=== PATIENT | female | born 1965 | race Caucasian/White ===

== ENCOUNTER 2016-11-19 18:33 | Emergency (ER) | payer BC, OTHER ==
--- NOTE | 2016-11-19 19:07 | ED Physician Documentation ---
History of Present Illness - Stated complaint Stated Complaint: LEG/ABD PX - Chief complaint Chief Complaint: General - History obtained from History obtained from: Patient, Family - History of Present Illness Timing: Today Pain level max: 5 Pain level now: 5 Quality: aching, dull pain Improved by: nothing Worsened by: nothing - Additonal information Additional information: 50 yo F with redness to the LLE. states similar to past history of cellulitis. States noted the redness today. Took excedrin migraine without relief of her leg pain today. States had 1 episode of emesis and diarrhea yesterday. None today. Review of Systems Constitutional: reports: Chills. denies: Fever, Myalgias Nose: denies: Rhinorrhea / runny nose, Congestion Throat: denies: Sore throat Cardiac: denies: Chest pain / pressure Skin: denies: Rash Musculoskeletal: denies: Neck pain, Back pain Neurologic: denies: Focal weakness, Numbness, Headache PD PAST MEDICAL HISTORY - Past Medical History Past Medical History: Yes Cardiovascular: Hypertension Other Past Medical History: recurrent cellulitis, abdominal hernia - Present Medications Home Medications: Ambulatory Orders Medication Instructions Recorded Confirmed Cephalexin [Keflex] 500 mg PO Q6H #28 capsule 11/19/16 Oxycodone HCl/Acetaminophen 1 each PO Q6HR #10 tablet 11/19/16 [Percocet 5-325 mg Tablet] Sulfamethox/Trimeth 800/160 1 each PO BID #14 tablet 11/19/16 [Bactrim Ds 800/160] - Allergies Allergies/Adverse Reactions: Allergies Allergy/AdvReac Type Severity Reaction Status Date / Time cephalexin monohydrate * Allergy Unknown Verified 11/19/16 18:43 [From Keflex] latex Allergy Unknown Verified 11/19/16 19:21 - Living Situation Living Situation: reports: With family Living Arrangement: reports: At home - Social History Does the pt smoke?: No Does the pt drink ETOH?: Yes Does the pt have substance abuse?: No - Family History Family history: reports: Non contributory PD ED PE NORMAL - Vitals Vital signs reviewed: Yes - General General: Alert and oriented X 3, No acute distress - HEENT HEENT: Moist mucous membranes - Neck Neck: Supple, no meningeal sign - Cardiac Cardiac: RRR, Strong equal pulses - Respiratory Respiratory: No respiratory distress, Clear bilaterally - Abdomen Abdomen: Soft, Non tender, Non distended - Derm Derm: Warm and dry - Extremities Extremities: Other (LLE redness, swelling, pain, warmth. knee to ankle, edges marked. no crepitus.) - Neuro Neuro: Alert and oriented X 3 Results - Vitals Vitals: Vital Signs - 24 hr 11/19/16 11/19/16 18:38 19:44 Temperature 35.9 C L Heart Rate 104 H 96 Respiratory 14 14 Rate Blood Pressure 186/106 H 152/78 H O2 Saturation 100 98 Oxygen O2 Source Room air PD MEDICAL DECISION MAKING - ED course Complexity details: reviewed results, re-evaluated patient, considered differential, d/w patient, d/w family ED course: Patient is a 50-year-old female who presents to the emergency department with left lower extremity cellulitis. Given Rocephin and Bactrim here. Will place on Keflex and Bactrim for home. She states she does not have a Keflex allergy. Patient is well-appearing, nontoxic. Afebrile. Patient counseled regarding signs and symptoms for which I believe and urgent re-evaluation would be necessary. Patient with good understanding of and agreement to plan and is comfortable going home at this time This document was made in part using voice recognition software. While efforts are made to proofread this document, sound alike and grammatical errors may occur. No nec fasc. No DVT. Departure - Departure Disposition: 01 Home, Self Care Clinical Impression: Cellulitis Qualifiers: Site of cellulitis: extremity Site of cellulitis of extremity: lower extremity Laterality: left Qualified Code(s): L03.116 - Cellulitis of left lower limb Condition: Good Instructions: ED Infec Skin Cellulitis Follow-Up: your,doctor in 2 days for skin check [Other] Prescriptions: Oxycodone HCl/Acetaminophen [Percocet 5-325 mg Tablet] 1 each PO Q6HR #10 tablet Sulfamethox/Trimeth 800/160 [Bactrim Ds 800/160] 1 each PO BID #14 tablet Cephalexin [Keflex] 500 mg PO Q6H #28 capsule Comments: Take all antibiotics until gone. Return if you worsen. Do not drink alcohol or drive while on narcotic pain medicine. Note that many narcotic pain relievers also contain tylenol/acetaminophen. Please ensure that your total dose of acetaminophen from all sources does not exceed 3 grams (3000mg) per day. You may constipated on this medication, take a stool softener such as "Colace" twice a day while you are on it. Also recommend a ojox-zyz-nmtacuz laxative such as senna or MiraLAX any day that you do not have a bowel movement. If you received narcotic pain medication in the emergency department, do not drive or operate machinery for the next 24 hours. Your blood pressure was elevated today on check in to the emergency department. This does not mean that you have hypertension, it is a common phenomenon to check into the emergency department and have elevated blood pressure. I recommend that you see your primary care physician within the week to have it rechecked when you're feeling better. Discharge Date/Time: 11/19/16 19:55
[2016-11-19] MEDS ORDERED: oxyCOD/ACETAMIN 5 MG/325 MG TABLET PO STA (19:20)
[2016-11-19] MEDS ORDERED: cefTRIAXone 1 GM VIAL IM STA (19:20)
[2016-11-19] MEDS ORDERED: SULFAMETH/TRIMETH DS 800/160 MG TABLET PO STA (19:20)
[2016-11-19] MEDS ORDERED: SULFAMETH/TRIMETH DS 800/160 MG TABLET PO ONE (19:31)
[2016-11-19] MEDS ORDERED: oxyCOD/ACETAMIN 5 MG/325 MG TABLET PO ONE (19:31)
[2016-11-19] MEDS ORDERED: cefTRIAXone 1 GM VIAL ONE (19:32)
[2016-11-19] MEDS ORDERED: LIDOCAINE 1% 2 ML VIAL ONE (19:32)
[2016-11-19 19:47] VITALS: BP 152/78
== END 2016-11-19 19:55 | disposition home or self-care (01) ==
LOC: ED 18:33
DX: L03.116 Cellulitis of left lower limb (principal); I10 Essential (primary) hypertension
CPT/HCPCS: 96372; 99283; A9270

== ENCOUNTER 2017-07-21 11:10 | Outpatient (CLI) | payer MEDICAID ==
[2017-07-21 17:28] LABS: BASOPHILS % (AUTO) 0.4 %; EOSINOPHILS # (AUTO) 0.1 10^3/uL (0.0-0.7); EOSINOPHILS % (AUTO) 1.4 %; HGB - HEMOGLOBIN 13.3 g/dL (12.0-16.0); LYMPHOCYTES # (AUTO) 1.8 10^3/uL (1.5-3.5); LYMPHOCYTES % (AUTO) 22.4 %; MEAN CORPUSCULAR HEMOGLOBIN 30.2 pg (27.0-31.0); MEAN CORPUSCULAR HGB CONC 33.5 g/dL (32.0-36.0); MEAN CORPUSCULAR VOLUME 90.2 fL (81.0-99.0); MEAN PLATELET VOLUME 7.3 fL (7.9-10.8); MONOCYTES # (AUTO) 0.4 10^3/uL (0.0-1.0); MONOCYTES % (AUTO) 5.1 %; NEUTROPHILS # (AUTO) 5.7 10^3/uL (1.5-6.6); NEUTROPHILS % (AUTO) 70.7 %; PLT - PLATELET COUNT 390 10^3/uL (130-450); RED BLOOD COUNT 4.39 10^6/uL (4.20-5.40); RED CELL DISTRIBUTION WIDTH 13.6 % (12.0-15.0)
[2017-07-21 17:38] LABS: ALBUMIN 3.7 g/dL (3.2-5.5); ALBUMIN/GLOBULIN RATIO 1.1 (1.0-2.2); ALKALINE PHOSPHATASE 78 IU/L (42-121); ALT ALANINE AMINOTRANSFERASE 16 IU/L (10-60); AST ASPARTATE AMINOTRANSFERASE 17 IU/L (10-42); BILIRUBIN,TOTAL 0.6 mg/dL (0.2-1.0); BUN - BLOOD UREA NITROGEN 9 mg/dL (6-20); CALCIUM 8.7 mg/dL (8.5-10.3); CARBON DIOXIDE - CO2 28 mmol/L (21-32); CHLORIDE 104 mmol/L (101-111); CHOL/HDL RATIO 3.7 (<4.4); CHOLESTEROL 155 mg/dL; CREATININE 0.6 mg/dL (0.4-1.0); GFR - MDRD 106 (>89); GLUCOSE 107 mg/dL (70-100); HDL CHOLESTEROL 42 mg/dL; LDL CHOLESTEROL,CALCULATED 82 mg/dL; SODIUM 137 mmol/L (135-145); VLDL CHOLESTEROL 31 mg/dL
== END 2017-07-21 11:11 | disposition home or self-care (01) ==
LOC: LAB.F 11:10
PROVIDERS: ATTEND Physician Assistant Medical
DX: Z00.00 Encounter for general adult medical examination without abnormal findings (principal)
CPT/HCPCS: 36415; 80053; 80061; 82306; 83721; 84443; 85025

== ENCOUNTER 2017-07-21 23:38 | Emergency (ER) | payer MEDICAID ==
[2017-07-21] MEDS ORDERED: TETANUS/DIPHTHERIA/PERTUSSIS 0.5 ML SYRINGE IM ONE (23:50)
[2017-07-22] MEDS ORDERED: AMOX/CLAV 875 MG/125 MG TABLET PO STA (00:04)
[2017-07-22] MEDS ORDERED: IBUPROFEN 600 MG TABLET PO STA (00:05)
--- NOTE | 2017-07-22 00:20 | ED Physician Documentation ---
PD HPI ANIMAL BITE - Stated complaint Stated Complaint: CAT BITE - Chief complaint Chief Complaint: Laceration - History obtained from History obtained from: Patient, Family - History of Present Illness Location of injury(ies): RUE, Right hand Details of the event: Cat, Immunized, Provoked Timing - onset: Today Timing - details: Abrupt onset Worsened by: Moving, Palpating Contributing factors: No: Immunocompromised, Asplenic Similar symptoms before: Has not had sx before Recently seen: Not recently seen - Additional information Additional information: Patient is a 51 year old female with no significant past medical history who is presenting to the emergency department after being bit by her cat. patient states that she tried to give her cat a bath today and when she tried to put it in the water it scratched an bit her. Patient states that the cat is otherwise vaccinated and well appearing. 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 - Present Medications Home Medications: Ambulatory Orders Medication Instructions Recorded Confirmed Lisinopril 1 tab PO DAILY 07/21/17 07/21/17 Amox/Clav 875/125 [Augmentin] 1 each PO Q12H #14 tablet 07/22/17 - Allergies Allergies/Adverse Reactions: Allergies Allergy/AdvReac Type Severity Reaction Status Date / Time cephalexin monohydrate * Allergy Unknown Verified 07/21/17 23:45 [From Keflex] latex Allergy Unknown Verified 07/21/17 23:45 - Social History Does the pt smoke?: No Smoking Status: Never smoker Does the pt drink ETOH?: Yes Does the pt have substance abuse?: No - Immunizations Immunizations are current?: No PD ED PE NORMAL - Vitals Vital signs reviewed: Yes - General General: Alert and oriented X 3 - Cardiac Cardiac: RRR - Respiratory Respiratory: No respiratory distress - Abdomen Abdomen: Non distended - Neuro Neuro: Alert and oriented X 3 PD ED PE EXPANDED - HEENT HEENT: Head injury (superficial scratch on patient's left forehead) - Derm Derm: Abrasion (s), Other (puncture wound) - Extremities Extremities: Left forearm (superficial scratches of left arm), Right hand ( puncture wound to right hand) Results - Vitals Vitals: Vital Signs - 24 hr 07/21/17 07/22/17 23:41 00:26 Temperature 36.6 C Heart Rate 86 90 Respiratory 16 16 Rate Blood Pressure 186/99 H 119/108 H O2 Saturation 100 99 Oxygen O2 Source Room air Procedures - Laceration (location) right hand Length in cm: 0.5 Wound type: Into subcut fat Neurovascular status: Vascular intact Wound Preparation: Hibiclens Skin layer closure: Steri strips Other: Patient tolerated well, Tetanus booster given Complexity: Simple PD MEDICAL DECISION MAKING - ED course Complexity details: reviewed old records, reviewed results, re-evaluated patient , considered differential, d/w patient ED course: Patient was seen and examined at bedside. Patient's wounds were cleaned. one steri strip was placed over one of the puncture wounds. patient was treated with tdap and augmentin. patient required no further work up and was stable for discharge with outpatient follow up. Departure - Departure Disposition: 01 Home, Self Care Clinical Impression: Cat bite Condition: Good Instructions: ED Bite Animal General Follow-Up: Viki Villela PA-C [Primary Care Provider] - Within 1 week Prescriptions: Amox/Clav 875/125 [Augmentin] 1 each PO Q12H #14 tablet Comments: Your symptoms today are being caused by a cat bite. You were treated with your tetanus shot and started on antibiotics. You will be on the antibiotics for the next week. You should keep the wound clean and dry. You should monitor for signs of infection. If the steri strip falls off your hand wound in the next few days you can replace it. You can take motrin or tylenol as needed for pain. You may return to the emergency department at any time for new, worsening or uncontrollable symptoms. Discharge Date/Time: 07/22/17 00:28
[2017-07-22 00:28] VITALS: BP 119/108
== END 2017-07-22 00:28 | disposition home or self-care (01) ==
LOC: ED 23:38
DX: S61.411A Laceration without foreign body of right hand, initial encounter (principal); W55.01XA Bitten by cat, initial encounter; S00.81XA Abrasion of other part of head, initial encounter; S50.812A Abrasion of left forearm, initial encounter; W55.03XA Scratched by cat, initial encounter; I10 Essential (primary) hypertension; Z00.00 Encounter for general adult medical examination without abnormal findings; Z23 Encounter for immunization
CPT/HCPCS: 36415; 80053; 80061; 82306; 84443; 85025; 90471; 90715; 99283; A9270; 83721

== ENCOUNTER 2017-07-23 10:02 | Emergency (ER) | payer MEDICAID ==
[2017-07-23] MEDS ORDERED: AMPICILLIN/SULBACTAM 3 GM in SODIUM CHLORIDE 0.9% MINIBAG 100 ML IV STA (10:48)
--- NOTE | 2017-07-23 10:54 | ED Physician Documentation ---
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 She was seen in the emergency department here at that time and was prescribed Augmentin, and a tetanus booster was administered. She was seen this morning by her primary physician who called me stating he would be sending the patient to the emergency department for an x- ray and IV antibiotics because of worsening symptoms. The patient reports increased redness and swelling of her hand. She denies fever, numbness or weakness. She denies shortness of breath. She is right-hand dominant. Review of Systems Constitutional: denies: Fever, Chills Throat: denies: Sore throat Respiratory: denies: Dyspnea GI: denies: Nausea, Vomiting Skin: reports: Bite / sting (Right hand) Musculoskeletal: reports: Extremity swelling (Right hand.) Neurologic: reports: Headache (mild). 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 - Present Medications Home Medications: Ambulatory Orders Medication Instructions Recorded Confirmed Lisinopril 1 tab PO DAILY 07/21/17 07/21/17 Amox/Clav 875/125 [Augmentin] 1 each PO Q12H #14 tablet 07/22/17 - Allergies Allergies/Adverse Reactions: Allergies Allergy/AdvReac Type Severity Reaction Status Date / Time latex Allergy Rash Verified 07/23/17 10:24 - Social History Does the pt smoke?: No Smoking Status: Never smoker Does the pt drink ETOH?: Yes Does the pt have substance abuse?: No - Immunizations Immunizations are current?: No PD ED PE NORMAL - Vitals Vital signs reviewed: Yes (hypertensive) - General General: Alert and oriented X 3, Other (Overweight.) - HEENT HEENT: Atraumatic, Moist mucous membranes, Pharynx benign - Cardiac Cardiac: RRR, No murmur - Respiratory Respiratory: No respiratory distress - Derm Derm: No rash - Extremities Extremities: Other (There are 4 puncture sites noted on the dorsum of the right hand on the radial side. There is soft tissue swelling and erythema extending from the base of the fingers to just proximal of the wrist. She is able to fully extend the fingers and can flex partially, limited by the swelling, but not by tenderness discomfort. There is no lymphangitic streaking, and no axillary adenopathy. Distal neurovascular is intact.) - Neuro Neuro: Alert and oriented X 3, No motor deficit, No sensory deficit Results - Vitals Vitals: Vital Signs - 24 hr 07/23/17 07/23/17 10:20 13:02 Temperature 36.5 C 37.0 C Heart Rate 78 65 Respiratory 16 18 Rate Blood Pressure 185/99 H 147/100 H O2 Saturation 97 98 Oxygen O2 Source Room air - Labs Labs: Laboratory Tests 07/23/17 11:19 WBC 8.0 RBC 4.42 Hgb 13.7 Hct 39.1 MCV 88.5 MCH 30.9 MCHC 35.0 RDW 13.7 Plt Count 370 MPV 6.7 L Neut # 5.6 Lymph # 1.8 Mccone # 0.5 Eos # 0.1 Baso # 0.0 Absolute Nucleated RBC 0.00 Nucleated RBC % 0.0 - Rads (name of study) Right hand Radiology: Prelim report reviewed, EMP read contemporaneously, See rad report ( No osseous abnormality. Relatively diffuse hand swelling, most evident dorsally. No maria isabel soft tissue gas or radiopaque foreign body.) PD MEDICAL DECISION MAKING - ED course Complexity details: reviewed old records, reviewed results, re-evaluated patient , considered differential, d/w patient, d/w PMD ED course: The patient's presentation is significant for cellulitis of her right hand caused by a puncture wounds from cat bite. She has had 2 doses of Augmentin since it was prescribed the night before last. An x-ray of the hand reveals no subcutaneous emphysema. There is no lymphangitic streaking, and the patient has ability to flex and extend her fingers, indicating that she does not have tendosynovitis. Treatment in the emergency department included administration of Unasyn 3 g IV. I discussed with her the expected course of illness, continued antibiotic therapy and outpatient follow-up, as well as potentially worrisome signs or symptoms that should prompt reevaluation in the emergency department. I discussed my evaluation with her primary physician who will be seeing the patient in follow-up. Departure - Departure Disposition: 01 Home, Self Care Clinical Impression: Cellulitis Qualifiers: Site of cellulitis: extremity Site of cellulitis of extremity: upper extremity Laterality: right Qualified Code(s): L03.113 - Cellulitis of right upper limb Cat bite Qualifiers: Encounter type: subsequent encounter Qualified Code(s): W55.01XD - Bitten by cat, subsequent encounter Condition: Stable Instructions: ED Bite Cat, ED Infec Skin Cellulitis Follow-Up: Viki Villela PA-C [Primary Care Provider] - Comments: Keep your right hand elevated as much of the time as possible. Continue taking Augmentin as previously prescribed. He can use ibuprofen, up to 800 mg 3 times daily if needed for discomfort. Follow up with your primary physician within 1 week. Call to schedule appointment. Return to the emergency department if you develop increasing redness, swelling, pain, or otherwise worsening symptoms. Discharge Date/Time: 07/23/17 13:02
--- NOTE | 2017-07-23 11:15 | XRAY Preliminary Report ---
Exam: XR HAND 3 VIEW RT IMPRESSION: 1. No osseous abnormality. 2. Relatively diffuse hand swelling, most evident dorsally. No maria isabel soft tissue gas or radiopaque fo reign body. [facility] SITE ID: [id number]
--- NOTE | 2017-07-23 11:16 | XRAY Report ---
EXAM: RIGHT HAND RADIOGRAPHY EXAM DATE: 07/23/2017 11:05 AM. CLINICAL HISTORY: Cat bite right hand with infection. COMPARISON: None. TECHNIQUE: 3 views. FINDINGS: Bones: Normal. No fractures or bone lesions. Joints: Normal. No subluxations. Soft Tissues: Relatively diffuse soft tissue swelling, most evident throughout the dorsal aspect of t he hand and less so fingers. No definite soft tissue gas or radiopaque foreign bodies. IMPRESSION: 1. No osseous abnormality. 2. Relatively diffuse hand swelling, most evident dorsally. No maria isabel soft tissue gas or radiopaque fo reign body. [facility] Referring Provider Line: [phone] SITE ID: [id number]
[2017-07-23 11:24] LABS: BASOPHILS % (AUTO) 0.5 %; EOSINOPHILS # (AUTO) 0.1 10^3/uL (0.0-0.7); HGB - HEMOGLOBIN 13.7 g/dL (12.0-16.0); LYMPHOCYTES # (AUTO) 1.8 10^3/uL (1.5-3.5); LYMPHOCYTES % (AUTO) 22.6 %; MEAN CORPUSCULAR HEMOGLOBIN 30.9 pg (27.0-31.0); MEAN CORPUSCULAR VOLUME 88.5 fL (81.0-99.0); MEAN PLATELET VOLUME 6.7 fL (7.9-10.8); MONOCYTES # (AUTO) 0.5 10^3/uL (0.0-1.0); MONOCYTES % (AUTO) 6.1 %; NEUTROPHILS # (AUTO) 5.6 10^3/uL (1.5-6.6); NEUTROPHILS % (AUTO) 69.8 %; PLT - PLATELET COUNT 370 10^3/uL (130-450); RED BLOOD COUNT 4.42 10^6/uL (4.20-5.40); RED CELL DISTRIBUTION WIDTH 13.7 % (12.0-15.0)
[2017-07-23 13:03] VITALS: BP 147/100
== END 2017-07-23 13:02 | disposition home or self-care (01) ==
LOC: ED 10:02
DX: L03.113 Cellulitis of right upper limb (principal); S61.431A Puncture wound without foreign body of right hand, initial encounter; W55.01XA Bitten by cat, initial encounter; I10 Essential (primary) hypertension
CPT/HCPCS: 36415; 85025; 96365; 99283; 99284

== ENCOUNTER 2017-08-04 13:13 | Outpatient (CLI) | payer MEDICAID ==
--- NOTE | 2017-08-17 13:35 | Mammography Report ---
DIGITAL SCREENING MAMMOGRAM: 08/04/2017 CLINICAL INDICATION: 51-year-old with history of late childbearing for screening. COMPARISON: Films from his [place], [place] dated 12/30/2013. TECHNIQUE: Routine CC and MLO projections were obtained of the breasts. FINDINGS: Scattered fibroglandular tissue is present within the breasts. There are no dominant masses, suspicious microcalcifications, or secondary signs of malignancy. In comparison to the previous studies, there are no significant changes. IMPRESSION: NO MAMMOGRAPHIC EVIDENCE OF MALIGNANCY. NO SIGNIFICANT INTERVAL CHANGES. RECOMMENDATION: Screening mammography is recommended annually. BIRADS CATEGORY 1 - NEGATIVE. STANDARD QUALIFYING STATEMENTS: 1. This examination was reviewed with the aid of Computed-Aided Detection (CAD). 2. A negative or benign imaging report should not delay biopsy if clinically suspicious findings are present. Consider surgical consultation if warranted. More than 5% of cancers are not identified by imaging. 3. Dense breasts may obscure an underlying neoplasm. TD: 08/17/2017 13:34
== END 2017-08-04 13:14 | disposition home or self-care (01) ==
LOC: DI 13:13
PROVIDERS: ATTEND Physician Assistant Medical
DX: Z00.00 Encounter for general adult medical examination without abnormal findings (principal); Z12.31 Encounter for screening mammogram for malignant neoplasm of breast
CPT/HCPCS: 77067

== ENCOUNTER 2017-08-20 13:41 | Day surgery (SDC) | payer MEDICAID ==
[~2017-08-20 13:41] MED LIST: LACTATED RINGERS 1,000 ML IV ONE
[2017-08-20] MEDS ORDERED: MIDAZOLAM 2 MG/2 ML VIAL IVP ONE (16:12)
[2017-08-20] MEDS ORDERED: fentaNYL 250 MCG/5 ML VIAL IVP ONE (16:12)
[2017-08-20] MEDS ORDERED: PROPOFOL 200 MG/20 ML VIAL IVP ONE (16:40)
[2017-08-20] MEDS ORDERED: LIDOCAINE-MPF 2% 5 ML VIAL IM ONE (16:40)
[2017-08-20 17:52] VITALS: BP 135/77
== END 2017-08-20 13:42 | disposition home or self-care (01) ==
LOC: SDS 13:41
PROVIDERS: ATTEND Internal Medicine Gastroenterology
PROC: 0DBN8ZX Excision of Sigmoid Colon, Via Natural or Artificial Opening Endoscopic, Diagnostic (ICD-10-PCS; 2017-08-20)
PROC: 0DBN8ZX Excision of Sigmoid Colon, Via Natural or Artificial Opening Endoscopic, Diagnostic (ICD-10-PCS; principal; 2017-08-20 14:45)
DX: Z12.11 Encounter for screening for malignant neoplasm of colon (principal); K63.5 Polyp of colon; I10 Essential (primary) hypertension; E78.5 Hyperlipidemia, unspecified; Z80.0 Family history of malignant neoplasm of digestive organs
CPT/HCPCS: 45380; 45385; J3010; J7120; 88305

== ENCOUNTER 2017-09-30 12:56 | Outpatient (CLI) | payer MEDICAID ==
--- NOTE | 2017-10-01 08:18 | XRAY Report ---
Procedure Date: 09/30/2017 Accession Number: [id number] / [id number] Procedure: FL - Barium Enema w/Air CPT Code: FULL RESULT: EXAM: Barium Enema w/Air DATE: 09/30/2017 4:14 PM CLINICAL HISTORY: HX OF COLON POLYPS, ADENOMATOUS TECHNIQUE: Double contrast barium enema COMPARISON: None FINDINGS: Initial jammer hooker view of the abdomen demonstrates a normal bowel gas pattern. The colon is normal in caliber. There is no evidence of obstruction within the colon passes into and out of the anterior abdominal wall hernia. No definite polyp or constricting mass lesion is identified. The cecum distends normally. The appendix opacifies with contrast. IMPRESSION: No definite polyp or constricting mass lesion identified. No obstruction at the level of the anterior abdominal wall hernia. Fluoroscopy time: 2 minutes 3 seconds; 28 spot images obtained.
== END 2017-09-30 12:57 | disposition home or self-care (01) ==
LOC: DI 12:56
PROVIDERS: ATTEND Internal Medicine Gastroenterology
DX: Z86.010 Personal history of colon polyps (principal); K43.9 Ventral hernia without obstruction or gangrene
CPT/HCPCS: 74280

== ENCOUNTER 2018-01-27 12:22 | Emergency (ER) | payer SELFPAY ==
--- NOTE | 2018-01-27 14:28 | ED Physician Documentation ---
History of Present Illness - Stated complaint Stated Complaint: DIZZY/LEFT LEG PX - Chief complaint Chief Complaint: General - History obtained from History obtained from: Patient - History of Present Illness Timing: Other (52-year-old woman with history of recurrent cellulitis of the left leg which started up on Thursday and has had fevers at night and pain especially when she is up and around but not too bad at rest. She saw her physician today and got Rocephin injections and a prescription for doxycycline and Percocet. About 20 minutes after taking the Percocet she became vertiginous after turning her head rapidly and nearly passed out but did not. 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:  - Present Medications Home Medications: Ambulatory Orders Medication Instructions Recorded Confirmed Oxycodone HCl/Acetaminophen 1 tab 01/27/18 [Oxycodone-Acetaminophen 5-325] RX: Doxycycline Hyclate 1 tab 01/27/18 RX: Tramadol HCl 50 mg PO Q4H PRN #10 tablet 01/27/18 - Allergies Allergies/Adverse Reactions: Allergies Allergy/AdvReac Type Severity Reaction Status Date / Time latex Allergy Rash Verified 07/23/17 10:24 cephalexin [From Keflex] AdvReac Unknown Unknown Verified 08/20/17 13:38 - Social History Does the pt smoke?: No Smoking Status: Never smoker Does the pt drink ETOH?: Yes Does the pt have substance abuse?: No - Immunizations Immunizations are current?: No - POLST Patient has POLST: No PD ED PE NORMAL - Vitals Vital signs reviewed: Yes - General General: Alert and oriented X 3, No acute distress - HEENT HEENT: PERRL, EOMI - Neck Neck: Supple, no meningeal sign, No bony TTP - Cardiac Cardiac: RRR, No murmur - Respiratory Respiratory: No respiratory distress, Clear bilaterally - Abdomen Abdomen: Normal bowel sounds, Soft, Non tender - Back Back: No CVA TTP, No spinal TTP - Derm Derm: Normal color, Warm and dry - Extremities Extremities: Other (She has a significant cellulitis of basically the whole left leg from below the knee down to the ankle. 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 Given the extent of the cellulitis blood work was done to screen for severe illness and the blood work was reassuring. - Sepsis Event Vital Signs: Vital Signs - 24 hr 01/27/18 12:31 Temperature 36.6 C Heart Rate 68 Respiratory 18 Rate Blood Pressure 151/94 H O2 Saturation 95 Oxygen O2 Source Room air Departure - Departure Disposition: 01 Home, Self Care Clinical Impression: Cellulitis Condition: Good Record reviewed to determine appropriate education?: Yes Instructions: Cellulitis Dc Prescriptions: RX: Tramadol HCl 50 mg PO Q4H PRN #10 tablet PRN Reason: Pain Comments: SEE YOUR DOCTOR TOMORROW SCHEDULED Your blood pressure was elevated today on check into the emergency department. This does not mean that you have hypertension, it is a common phenomenon to come to the emergency department and have elevated blood pressure. I recommend that you see your primary care physician within the week to have it rechecked when you are feeling better. Discharge Date/Time: 01/27/18 15:20
[2018-01-27 14:44] LABS: BASOPHILS % (AUTO) 0.4 %; EOSINOPHILS % (AUTO) 0.4 %; HGB - HEMOGLOBIN 13.8 g/dL (12.0-16.0); LYMPHOCYTES # (AUTO) 1.3 10^3/uL (1.5-3.5); LYMPHOCYTES % (AUTO) 17.4 %; MEAN CORPUSCULAR HEMOGLOBIN 31.5 pg (27.0-31.0); MEAN CORPUSCULAR VOLUME 89.9 fL (81.0-99.0); MEAN PLATELET VOLUME 6.9 fL (7.9-10.8); MONOCYTES # (AUTO) 0.8 10^3/uL (0.0-1.0); MONOCYTES % (AUTO) 11.1 %; NEUTROPHILS # (AUTO) 5.2 10^3/uL (1.5-6.6); NEUTROPHILS % (AUTO) 70.7 %; PLT - PLATELET COUNT 339 10^3/uL (130-450); RED BLOOD COUNT 4.39 10^6/uL (4.20-5.40); RED CELL DISTRIBUTION WIDTH 13.9 % (12.0-15.0); WHITE BLOOD COUNT 7.4 x10^3/uL (4.8-10.8)
[2018-01-27 14:53] LABS: CALCIUM 9.2 mg/dL (8.5-10.3); CREATININE 0.8 mg/dL (0.4-1.0)
[2018-01-27 15:21] VITALS: BP 116/82
== END 2018-01-27 15:20 | disposition home or self-care (01) ==
LOC: ED 12:22
DX: L03.116 Cellulitis of left lower limb (principal); I10 Essential (primary) hypertension
CPT/HCPCS: 36415; 80048; 83605; 85025; 99283

== ENCOUNTER 2018-05-21 12:50 | Outpatient (CLI) | payer BC | END 2018-05-21 12:51 | disposition home or self-care (01) | LOC: LAB.F 12:50 | PROVIDERS: ATTEND Physician Assistant Medical | DX: Z01.84 Encounter for antibody response examination (principal) | CPT/HCPCS: 36415; 81599; 86765 ==

== ENCOUNTER 2018-08-25 09:48 | Emergency (ER) | payer BC ==
[2018-08-25 10:00] VITALS: BP 142/88
--- NOTE | 2018-08-25 10:58 | XRAY Report ---
Reason: pain with ROM. Procedure Date: 08/25/2018 Accession Number: [id number] / [id number] Procedure: XR - Shoulder 3 View RT CPT Code: FULL RESULT: EXAM: RIGHT SHOULDER RADIOGRAPHY EXAM DATE: 08/25/2018 10:46 AM. CLINICAL HISTORY: Pain with ROM. COMPARISON: None. TECHNIQUE: 3 views. FINDINGS: Bones: Normal. No fracture or bone lesion. Joints: The glenohumeral and acromioclavicular joints are normal. Soft tissues: Amorphous calcifications along the distal aspect of the rotator cuff. IMPRESSION: 1. No fracture or significant degenerative changes. 2. Amorphous calcifications along the distal aspect of the rotator cuff are nonspecific but can be seen in the setting of hydroxyapatite deposition disease. [facility]
--- NOTE | 2018-08-25 11:23 | ED Physician Documentation ---
PD HPI UPPER EXT INJURY - Stated complaint Stated Complaint: RT SHOULDER PAIN - Chief complaint Chief Complaint: Ext Problem - History obtained from History obtained from: Patient - History of Present Illness Location: Right, Shoulder Type of injury: Other Timing - onset: How many months ago (6) Timing - duration: Months (6) Timing - details: Gradual onset, Still present Improved by: Rest, Immobilization Worsened by: Moving, Palpating Associated symptoms: Swelling Contributing factors: No: Anticoagulated Similar symptoms before: No diagnosis Recently seen: Not recently seen - Additonal information Additional information: 52 y/o female with a history of right shoulder pain has developed worsening pain over the past 6 months. She goes to the pool to swim daily and she has had increased pain in the shoulder to the point that she is not able to swim secondary to pain and decreased ROM. 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 Derm:  - Present Medications Home Medications: Ambulatory Orders Medication Instructions Recorded Confirmed Diclofenac Epolamine [Flector] 1 each TD BID #20 adh..patch 08/25/18 traMADol [Ultram] 50 - 100 mg PO Q6H PRN #20 tablet 08/25/18 - Allergies Allergies/Adverse Reactions: Allergies Allergy/AdvReac Type Severity Reaction Status Date / Time latex Allergy Rash Verified 08/25/18 10:00 cephalexin [From Keflex] AdvReac Unknown Unknown Verified 08/25/18 10:00 - Social History Does the pt smoke?: No Smoking Status: Never smoker Does the pt drink ETOH?: Yes Does the pt have substance abuse?: No - Immunizations Immunizations are current?: No - POLST Patient has POLST: No PD ED PE NORMAL - Vitals Vital signs reviewed: Yes (hypertnesive ) - General General: Alert and oriented X 3, No acute distress, Well developed/nourished - HEENT HEENT: Atraumatic, PERRL, EOMI - Neck Neck: Supple, no meningeal sign, No bony TTP - Respiratory Respiratory: No respiratory distress - Derm Derm: Normal color, Warm and dry, No rash - Extremities Extremities: No deformity, Other (There is point tenderness and fullness to the anterior deltoid. There is restriction to ROM secondary to pain along the rotator cuff. Distal n/v is intact. 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 No fracture or significant degenerative changes. 2. Amorphous calcifications along the distal aspect of the right rotator cuff are nonspecific but can be seen in the setting of hydroxyapatite deposition disease.), EMP read indepedently, See rad report PD MEDICAL DECISION MAKING - ED course Complexity details: reviewed results, re-evaluated patient, considered differential, d/w patient ED course: 52 y/o female with progressive worsening of shoulder pain is found to have hydroxyapetite crystals in the shoulder and she is treated with PO decadron and referred to orthopedics for further workup and treatment. Departure - Departure Disposition: 01 Home, Self Care Clinical Impression: [place] shoulder syndrome, right Condition: Stable Instructions: ED Bursitis [facility] Viki Villela PA-C [Primary Care Provider] - Prescriptions: Diclofenac Epolamine [Flector] 1 each TD BID #20 adh..patch traMADol [Ultram] 50 - 100 mg PO Q6H PRN #20 tablet PRN Reason: Pain Discharge Date/Time: 08/25/18 12:16
[2018-08-25] MEDS ORDERED: CHERRY SYRUP 10 ML UDC PO ONE (11:51)
[2018-08-25] MEDS ORDERED: DEXAMETHASONE 10 MG/ML VIAL PO STA (11:51)
== END 2018-08-25 12:16 | disposition home or self-care (01) ==
LOC: ED 09:48
DX: M11.011 Hydroxyapatite deposition disease, right shoulder (principal); I10 Essential (primary) hypertension
CPT/HCPCS: 73030; 99281; 99283; A9270

== ENCOUNTER 2019-09-27 07:48 | Emergency (ER) | payer BC, OTHER ==
--- NOTE | 2019-09-27 08:28 | ED Physician Documentation ---
History of Present Illness - Stated complaint Stated Complaint: HERNIA/GROIN PX - Chief complaint Chief Complaint: General - History obtained from History obtained from: Patient - History of Present Illness Timing: Last night - Additonal information Additional information: 53-year-old female with a history of recurrent left lower extremity cellulitis had a rough night last night has developed some pain in her left groin where she usually has pain associated with the cellulitis believed to be secondary to lymph node enlargement. She has some mild erythema to the anterior calf just beginning. She states that she has had this happen to her 4 times previously and symptoms are similar. She has developed a fever and she has had abdominal pain throughout the night from a ventral hernia she was very uncomfortable with the hernia pain throughout the night vomited once and this morning this is improved. Her groin pain fever and redness remain. Review of Systems Constitutional: reports: Fever, Fatigue Eyes: denies: Decreased vision Ears: denies: Ear pain Nose: denies: Rhinorrhea / runny nose, Congestion Throat: denies: Sore throat Cardiac: denies: Chest pain / pressure, Palpitations Respiratory: denies: Dyspnea, Cough GI: reports: Abdominal Pain, Nausea, Vomiting : denies: Dysuria, Frequency Skin: denies: Rash Musculoskeletal: reports: Extremity pain. 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 Derm:  - Present Medications Home Medications: Ambulatory Orders Medication Instructions Recorded Confirmed Diclofenac Epolamine [Flector] 1 each TD BID #20 adh..patch 08/25/18 traMADol [Ultram] 50 - 100 mg PO Q6H PRN #20 tablet 08/25/18 Cefdinir 300 mg PO BID #20 capsule 09/27/19 - Allergies Allergies/Adverse Reactions: Allergies Allergy/AdvReac Type Severity Reaction Status Date / Time latex Allergy Rash Verified 09/27/19 08:03 cephalexin [From Keflex] AdvReac Unknown Unknown Verified 09/27/19 08:03 - Social History Does the pt smoke?: No Smoking Status: Never smoker Does the pt drink ETOH?: Yes Does the pt have substance abuse?: No - Immunizations Immunizations are current?: No - POLST Patient has POLST: No PD ED PE NORMAL - Vitals Vital signs reviewed: Yes (Tachycardic and hypertensive) - General General: Alert and oriented X 3, No acute distress, Well developed/nourished - HEENT HEENT: Atraumatic, PERRL, EOMI - Neck Neck: Supple, no meningeal sign, No bony TTP - Cardiac Cardiac: No murmur, Other (tachy to 110) - Respiratory Respiratory: No respiratory distress, Clear bilaterally - Abdomen Abdomen: Soft, Other (There is a ventral hernia that is reducible and non- tender. ) - Back Back: No CVA TTP, No spinal TTP - Derm Derm: Normal color, Warm and dry, No rash - Extremities Extremities: No deformity, No edema, Other (There is marked tenderness specifically to the left inguinal area. There is no palpable mass and this does not feel like a hernia. The area is repeatedly tender and bothers the patient. The anterior calf has only mild erythema from the ankle to just below the knee, and noticible only when comapred to the right side. distal n/v is intact. 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, No motor deficit, No sensory deficit, Normal speech Eye Opening: Spontaneous Motor: Obeys Commands Verbal: Oriented GCS Score: 15 - Psych Psych: Normal mood, Normal affect Results - Vitals Vitals: Vital Signs - 24 hr 09/27/19 09/27/19 09/27/19 08:04 08:07 08:45 Temperature 37.4 C 39.2 C H 38.2 C H Heart Rate 120 H 117 H 105 H Respiratory 20 20 16 Rate Blood Pressure 194/101 H 201/108 H 154/93 H O2 Saturation 97 94 98 09/27/19 09/27/19 09:18 10:10 Temperature 38.2 C H Heart Rate 103 H 107 H Respiratory 18 16 Rate Blood Pressure 152/80 H 131/72 H O2 Saturation 94 96 Oxygen O2 Source Room air - Labs Labs: Laboratory Tests 09/27/19 09/27/19 09/27/19 08:20 08:20 08:20 WBC 22.2 H RBC 4.47 Hgb 13.9 Hct 39.3 MCV 87.9 MCH 31.1 H MCHC 35.4 RDW 13.3 Plt Count 366 MPV 9.0 Neut # (Auto) 20.3 H Lymph # (Auto) 0.6 L [place] # (Auto) 1.0 Eos # (Auto) 0.0 Baso # (Auto) 0.1 Absolute Nucleated RBC 0.00 Nucleated RBC % 0.0 Manual Slide Review Indicated Platelet Estimate NORMAL (130-450,000) Platelet Morphology NORMAL APPEARANCE RBC Morph Micro Appear NORMAL APPEARANCE Sodium 133 L Potassium 3.6 Chloride 98 L Carbon Dioxide 23 Anion Gap 12.0 BUN 11 Creatinine 0.8 Estimated GFR (MDRD) 75 L Glucose 182 H Lactic Acid 1.8 Calcium 8.9 Total Bilirubin 0.9 AST 22 ALT 19 Alkaline Phosphatase 66 Total Protein 8.0 Albumin 4.2 Globulin 3.8 Albumin/Globulin Ratio 1.1 Lipase 27 Urine Color Urine Clarity Urine pH Ur Specific Colon Urine Protein Urine Glucose (UA) Urine Ketones Urine Occult Blood Urine Nitrite Urine Bilirubin Urine Urobilinogen Ur Leukocyte Esterase Ur Microscopic Review Urine Culture Comments 09/27/19 11:20 WBC RBC Hgb Hct MCV MCH MCHC RDW Plt Count MPV Neut # (Auto) Lymph # (Auto) [place] # (Auto) Eos # (Auto) Baso # (Auto) Absolute Nucleated RBC Nucleated RBC % Manual Slide Review Platelet Estimate Platelet Morphology RBC Morph Micro Appear Sodium Potassium Chloride Carbon Dioxide Anion Gap BUN Creatinine Estimated GFR (MDRD) Glucose Lactic Acid Calcium Total Bilirubin AST ALT Alkaline Phosphatase Total Protein Albumin Globulin Albumin/Globulin Ratio Lipase Urine Color DARK YELLOW Urine Clarity CLEAR Urine pH 7.0 Ur Specific Colon 1.010 Urine Protein NEGATIVE Urine Glucose (UA) NEGATIVE Urine Ketones NEGATIVE Urine Occult Blood NEGATIVE Urine Nitrite NEGATIVE Urine Bilirubin NEGATIVE Urine Urobilinogen 1 (NORMAL) Ur Leukocyte Esterase NEGATIVE Ur Microscopic Review NOT INDICATED Urine Culture Comments NOT INDICATED PD MEDICAL DECISION MAKING - ED course Complexity details: reviewed results, re-evaluated patient, considered differential, d/w patient ED course: 53-year-old female with recurrent cellulitis in the left leg is administered Rocephin 2 [address] IM we will [address] her on cefdinir. The last time she had this the keflex did not work and she was placed on cipro and this caused some posterior leg pain. Departure - Departure Disposition: 01 Home, Self Care Clinical Impression: Cellulitis Qualifiers: Site of cellulitis: extremity Site of cellulitis of extremity: lower extremity Laterality: left Qualified Code(s): L03.116 - Cellulitis of left lower limb Condition: Stable Instructions: ED Infec Skin Cellulitis Follow-Up: Lo Deras ARNP [Primary Care Provider] - Prescriptions: Cefdinir 300 mg PO BID #20 capsule
[2019-09-27] MEDS: ACETAMINOPHEN 325 MG TABLET PO STA (08:39)
[2019-09-27] MEDS: cefTRIAXone 2 GM in SODIUM CHLORIDE 0.9% MINIBAG 100 ML IV STA (08:40)
[2019-09-27 08:43] LABS: BASOPHILS # (AUTO) 0.1 10^3/uL (0.0-0.1); BASOPHILS % (AUTO) 0.3 %; EOSINOPHILS % (AUTO) 0.2 %; HGB - HEMOGLOBIN 13.9 g/dL (12.0-16.0); LYMPHOCYTES # (AUTO) 0.6 10^3/uL (1.5-3.5); LYMPHOCYTES % (AUTO) 2.6 %; MEAN CORPUSCULAR HEMOGLOBIN 31.1 pg (27.0-31.0); MEAN CORPUSCULAR HGB CONC 35.4 g/dL (32.0-36.0); MEAN CORPUSCULAR VOLUME 87.9 fL (81.0-99.0); MONOCYTES % (AUTO) 4.3 %; NEUTROPHILS # (AUTO) 20.3 10^3/uL (1.5-6.6); NEUTROPHILS % (AUTO) 91.5 %; PLT - PLATELET COUNT 366 10^3/uL (130-450); RED BLOOD COUNT 4.47 10^6/uL (4.20-5.40); RED CELL DISTRIBUTION WIDTH 13.3 % (12.0-15.0); WHITE BLOOD COUNT 22.2 x10^3/uL (4.8-10.8)
[2019-09-27 08:58] LABS: ALBUMIN 4.2 g/dL (3.2-5.5); ALBUMIN/GLOBULIN RATIO 1.1 (1.0-2.2); BILIRUBIN,TOTAL 0.9 mg/dL (0.2-1.0); CALCIUM 8.9 mg/dL (8.5-10.3); CREATININE 0.8 mg/dL (0.4-1.0)
[2019-09-27 09:01] LABS: PLATELET ESTIMATE, MANUAL NORMAL (130-450,000) (NORMAL); PLATELET MORPHOLOGY NORMAL APPEARANCE (NORMAL); RBC MORPHOLOGY (MULTIPLE) NORMAL APPEARANCE (NORMAL)
[2019-09-27 11:36] LABS: BILIRUBIN,URINE NEGATIVE (NEGATIVE); GLUCOSE, URINE (UA) NEGATIVE (NEGATIVE); KETONES,URINE (UA) NEGATIVE (NEGATIVE); LEUKOCYTE ESTERASE, URINE NEGATIVE (NEGATIVE); NITRITE,URINE NEGATIVE (NEGATIVE); OCCULT BLOOD,URINE NEGATIVE (NEGATIVE); PROTEIN,URINE NEGATIVE (NEGATIVE); UROBILINOGEN,URINE 1 (NORMAL) E.U./dL (NORMAL)
[2019-09-27 11:38] LABS: CLARITY,URINE CLEAR (CLEAR)
[2019-09-27 11:58] VITALS: BP 126/77
== END 2019-09-27 12:05 | disposition home or self-care (01) ==
LOC: ED 07:48
DX: L03.116 Cellulitis of left lower limb (principal); R10.32 Left lower quadrant pain; K43.9 Ventral hernia without obstruction or gangrene; I10 Essential (primary) hypertension
CPT/HCPCS: 36415; 80053; 81003; 83605; 83690; 85025; 87040; 96365; 99284; A9270; 81001; 87086

== ENCOUNTER 2020-03-14 15:01 | Outpatient (CLI) | payer OTHER | END 2020-03-14 15:02 | disposition home or self-care (01) | LOC: COV 15:01 | PROVIDERS: ATTEND Surgery | DX: Z01.812 Encounter for preprocedural laboratory examination (principal); K46.0 Unspecified abdominal hernia with obstruction, without gangrene; Z20.828 Contact with and (suspected) exposure to other viral communicable diseases ==

== ENCOUNTER 2020-03-19 07:23 | Inpatient (IN) | payer OTHER ==
[~2020-03-19 07:23] MED LIST changes: +CEFAZOLIN SODIUM IN 0.9 % NACL 2 GM/100 ML BAG IV ONE; -LACTATED RINGERS 1,000 ML IV ONE
[2020-03-19] MEDS ORDERED: LACTATED RINGERS 1,000 ML IV ONE ×2 (07:31→13:35)
[2020-03-19 07:47] LABS: HCG UR QUAL NEGATIVE
[2020-03-19] MEDS ORDERED: NALOXONE 0.4 MG/ML VIAL IVP PRN (08:25)
[2020-03-19] MEDS ORDERED: HYDROmorphone 0.5 MG/0.5 ML SYRINGE IVP PRN ×2 (08:25→13:17)
[2020-03-19] MEDS ORDERED: ONDANSETRON 4 MG/2 ML VIAL IVP PRN ×2 (08:25→13:09)
[2020-03-19] MEDS ORDERED: ATROPINE ABBOJECT 1 MG/10 ML SYRINGE IVP PRN (08:25)
[2020-03-19] MEDS ORDERED: fentaNYL 100 MCG/2 ML VIAL IVP PRN (08:25)
[2020-03-19] MEDS ORDERED: METOCLOPRAMIDE 10 MG/2 ML VIAL IVP PRN ×2 (08:25→13:09)
[2020-03-19] MEDS ORDERED: ePHEDrine 50 MG/ML VIAL IVP PRN (08:25)
[2020-03-19] MEDS ORDERED: MORPHINE 2 MG/ML CARPUJECT IVP PRN (08:25)
--- NOTE | 2020-03-19 08:25 | ANESTHESIA ---
Pre-Anesthesia VS, & Labs - Diagnosis incarcerated ventral Hernia - Procedure laparoscopic ventral Hernia repair Vital Signs: Temp Pulse Resp BP Pulse Ox 36.9 C 85 18 151/91 H 96 03/19/20 07:39 03/19/20 07:39 03/19/20 07:39 03/19/20 07:39 03/19/20 07:39 Height: 5 ft 10 in Weight (kg): 155 kg Body Mass Index: 49.0 BMI Classification: Morbidly Obese - NPO >8 hours - Is Patient ?: No - Lab Results Lab results reviewed: Yes Home Medications and Allergies Home Medications: Ambulatory Orders Ascorbic Acid [Vitamin C] 1,000 mg PO DAILY 03/08/20 Cholecalciferol [Vitamin D3] 50 mcg PO DAILY 03/08/20 Elderberry 1,250 mg PO DAILY 03/08/20 Lidocaine Patch 5% [Lidoderm Patch] 1 each TOP DAILY 03/08/20 Multivitamin 1 each PO DAILY 03/08/20 Ascorbic Acid [Vitamin C] 1,000 mg PO DAILY 03/08/20 Cholecalciferol [Vitamin D3] 50 mcg PO DAILY 03/08/20 Elderberry 1,250 mg PO DAILY 03/08/20 Lidocaine Patch 5% [Lidoderm Patch] 1 each TOP DAILY 03/08/20 Multivitamin 1 each PO DAILY 03/08/20 Allergies/Adverse Reactions: Allergies Allergy/AdvReac Type Severity Reaction Status Date / Time latex Allergy Rash Verified 09/27/19 08:03 Anes History & Medical History - Anesthetic History Anesthesia Complications: reports: Slow wake-up, Other-see comment (Labile BP issues per patient) Family history of Anesthesia Complications: Denies Family history of Malignant Hyperthermia: Denies - Medical History Cardiovascular: reports: None Pulmonary: reports: Asthma, Sleep apnea (undiagnosed) Gastrointestinal: reports: None Urinary: reports: None Neuro: reports: Migraines Musculoskeletal: reports: Osteoarthritis Endocrine/Autoimmune: reports: None Skin: reports: Rosacea Smoking Status: Never smoker - Surgical History General: Colonoscopy Gynecologic: section, Other Dermatologic:  Exam General: Alert, Oriented x3, Cooperative, No acute distress Dental: WNL Mouth Openin Fingerbreadth Neck Mobility: Normal Mallampati classification: II Thyromental Distance: less than 4 cm Respiratory: Lungs clear, Normal breath sounds, No respiratory distress, No accessory muscle use Cardiovascular: Regular rate, Normal S1, Normal S2, No murmurs Plan Anesthesia Type: General Consent for Procedure(s) Verified and Reviewed: Yes Code Status: Attempt Resuscitation ASA classification: 3-Severe systemic disease Is this case an emergency?: No
[2020-03-19] MEDS ORDERED: LACTATED RINGERS 1,000 ML IV SCH (09:00)
[2020-03-19] MEDS ORDERED: SCOPOLAMINE PATCH TOP ONE (09:28)
[2020-03-19] MEDS ORDERED: LIDOCAINE 1%-EPI 1:100000 20 ML MDV ONE ×2 (09:35→11:11)
[2020-03-19] MEDS ORDERED: BUPIVACAINE 0.5% PF 30 ML VIAL ONE (09:35)
[2020-03-19] MEDS ORDERED: ceFAZolin 1 GM VIAL ONE (09:35)
[2020-03-19] MEDS ORDERED: LIDOCAINE 1%-EPI 1:100000 20 ML MDV SUBQ ONE ×2 (10:07)
[2020-03-19] MEDS ORDERED: BUPIVACAINE 0.5% PF 30 ML VIAL SUBQ ONE ×3 (10:07)
[2020-03-19] MEDS ORDERED: ceFAZolin 1 GM VIAL IR ONE (10:07)
[2020-03-19] MEDS ORDERED: PROPOFOL 500 MG/50 ML 500 MG/50 ML VIAL ONE (11:42)
[2020-03-19] MEDS ORDERED: oxyCODONE 5 MG TABLET PO PRN (13:09)
[2020-03-19] MEDS ORDERED: LORazepam 2 MG/ML VIAL IVP PRN (13:09)
[2020-03-19] MEDS ORDERED: ACETAMINOPHEN 325 MG TABLET PO PRN (13:09)
--- NOTE | 2020-03-19 13:09 | OPERATIVE REPORT ---
Operative Report - General Procedure Date: 03/19/20 Planned Procedure: Laparoscopic repair of a large, incarcerated, ventral hernia Pre-Op Diagnosis: Large incarcerated ventral hernia Procedure Performed: Laparoscopy with extensive lysis of adhesions, greater than 1 hour, and repair of a large ventral hernia Post Op Diagnosis: Large incarcerated ventral hernia - Procedure Note Primary Surgeon: Reza Anesthesia Provider: STELLA Myers Pathology: Hernia sac to pathology in formalin Estimated Blood Loss (mL): 200 Findings: 8 cm ventral defect containing a loop of colon and associated omentum Complications: None apparent - Other Other Information/Narrative: After obtaining informed consent, the patient was brought to the operating room and placed in the supine position on the operating table. Following successful induction of general endotracheal anesthesia, appropriate padding of all bony prominences and placement of appropriate monitors, the abdomen was prepped and draped in the standard surgical fashion. A Time Out was held per SCOPE protocol. All elements of the surgical safety checklist were followed before, during, and after the procedure. Following infiltration with local anesthetic to create a field block, an incision was create directly over the hernia near the umbilicus and carried through the skin and subcutaneous tissue to reveal the hernia sack and incarcerated contents. Within this large hernia sack which was entered cautiously and without any inadvertent viscus injury, we noted a knuckle of small bowel and a portion of preperitoneal fat. With great care, this tissue was teased sharply from the surrounding structures using both scalpel and Metzenbaum scissors. The bowel appeared well vascularized and fully viable. The fascia was then dissected to its respective components to allow for the ultimate primary intraperitoneal repair. This procedure was selected due the size of the hernia and the patient's body habitus. A wound protector was placed in the fascial defect and the entire small bowel evaluated through this opening. A 12 mm trocar was placed through the wound protector and the abdomen was insufflated to 15mm of Hg pressure. The camera was placed in the abdominal cavity. DIagnostic laparoscopy revealed significant adhesive disease. Extensive lysis of adhesions was undertaken sharply with laparoscopic scissors and with great care until the internal surface of the abdominal wall was free from adhesions with an appropriate surface for mesh placement. Following infiltration with local anesthetic, 4 5mm trocars were placed peripherally. One was placed in each upper quadrant and one in each lower quadrant under direct vision. A Gnammo Ventralight ST 15 cm circlular implant was chosen for repair. It was rolled and placed through the centrally placed 12 mm port. The peripheral ports were utilized to straighten and flatten the mesh up against the abdominal wall. The scaffold suture was pulled taut via the 12 mm port and we noted good apposition of the mesh to the anterior abdominal wall. The mesh was then fixed to the abdominal wall with absorbable tacks, 40 in total. This was performed sequentially through the 4 peripheral trocars in a 360 degree fashion. The scaffold suture was then released and the scaffolding removed via the right upper quadrant port. The abdomen was checked for hemostasis. It was irrigated with warm saline solution and aspirated free of all fluid and particulate matter. The trocars were then removed under direct vision and the abdomen was desufflated. The midline wound protector and trocar were then removed. This left a 4 cm defect with straight flat mesh at the base. The fascia was closed with interrupted 0 Vicryl sutures and the umbilicus reconstructed with 3-0 vicryl. The skin incisions were closed with monocryl and Dermabond was applied to the surface of all incisions. All sponge, needle, and instrument counts were correct at the conclusion of the case. The patient was allowed to awaken from anesthesia without difficulty and taken to the post anesthesia care unit in good condition.
[2020-03-19] MEDS: SODIUM CHLORIDE FLUSH 0.9% 10 ML SYRINGE IVP SCH (14:52)
[2020-03-19] MEDS: D5.45NS W/20 MEQ KCL 1,000 ML IV SCH (14:52)
[2020-03-19] MEDS: PANTOPRAZOLE 40 MG TABLET PO SCH (14:52)
--- NOTE | 2020-03-19 15:45 | PHARMACY PROGRESS NOTE ---
- Best Possible Medication History Admit Date and Time: 03/19/20 1309 Processed by: Pharmacy Medication History completed: Yes Patient Interview: Completed Secondary Source(s): Pharmacy records, Insurance records (PATIENT INTERVIEWED BY INCINERATOR PLANT LABORER. PATIENT ABLE TO CONFIRM HOME MEDICATIONS. ) As the person ultimately responsible for medication therapy, providers are able to order a medication from an existing home medication list in [facility] via the "Reconcile Routine" prior to Confirmation of that medication by supportability engineer. Such practice is discouraged except when the physician, in their clinical judgment, deems that a medical need exists for a medication without regard to previous use.
[2020-03-19] MEDS: ceFAZolin 2 GM in SODIUM CHLORIDE 0.9% 100ML 100 ML IV SCH (16:08)
[2020-03-19] MEDS: KETOROLAC 30 MG/ML VIAL IVP PRN (16:08)
[2020-03-19] MEDS: ACETAMINOPHEN 1,000 MG/100 ML 100 ML IV SCH (17:18)
[2020-03-20] MEDS: KETOROLAC 30 MG/ML VIAL IVP PRN ×4 (00:44→22:46)
[2020-03-20] MEDS: ACETAMINOPHEN 1,000 MG/100 ML 100 ML IV SCH ×3 (00:45→11:44)
[2020-03-20] MEDS: ceFAZolin 2 GM in SODIUM CHLORIDE 0.9% 100ML 100 ML IV SCH (01:09)
[2020-03-20] MEDS: SODIUM CHLORIDE FLUSH 0.9% 10 ML SYRINGE IVP SCH ×4 (01:13→23:45)
[2020-03-20] MEDS: D5.45NS W/20 MEQ KCL 1,000 ML IV SCH ×2 (02:39→11:40)
[2020-03-20] MEDS: SODIUM CHLORIDE FLUSH 0.9% 10 ML SYRINGE IVP PRN ×2 (06:34→15:07)
[2020-03-20] MEDS: PANTOPRAZOLE 40 MG TABLET PO SCH (06:42)
[2020-03-20] MEDS ORDERED: ONDANSETRON 4 MG/2 ML VIAL IVP ONE (09:35)
[2020-03-20] MEDS ORDERED: fentaNYL 100 MCG/2 ML VIAL IVP ONE (09:35)
[2020-03-20] MEDS ORDERED: HYDROmorphone 1 MG/ML CARPUJECT IVP ONE (09:35)
[2020-03-20] MEDS ORDERED: KETOROLAC 30 MG/ML VIAL IVP ONE (09:35)
[2020-03-20] MEDS ORDERED: MAGNESIUM SULFATE 1 GM/2 ML VIAL IV ONE (09:35)
[2020-03-20] MEDS ORDERED: LIDOCAINE-MPF 2% 5 ML VIAL IM ONE (09:35)
[2020-03-20] MEDS ORDERED: MIDAZOLAM 2 MG/2 ML VIAL IVP ONE (09:35)
[2020-03-20] MEDS ORDERED: DEXAMETHASONE 4 MG/ML VIAL IVP ONE (09:35)
[2020-03-20] MEDS ORDERED: PROPOFOL 200 MG/20 ML VIAL IVP ONE (09:35)
[2020-03-20] MEDS ORDERED: ePHEDrine 50 MG/ML VIAL IVP ONE (09:35)
[2020-03-20] MEDS ORDERED: SUCCINYLCHOLINE 200 MG/10 ML VIAL IVP ONE (09:35)
[2020-03-20] MEDS ORDERED: KETAMINE 500 MG/10 ML VIAL IVP ONE (09:35)
[2020-03-20] MEDS: ENOXAPARIN 40 MG/0.4 ML SYRINGE SUBQ SCH (10:11)
[2020-03-20] MEDS: polyethylene glycoL 3350 17 GM PACKET PO SCH (10:12)
--- NOTE | 2020-03-20 16:24 | PROVIDER PROGRESS NOTE ---
Subjective - General Admit Date: 03/19/20 Procedure Date: 03/19/20 Post Op Days: 1 Procedure Performed: Laparoscopic ventral hernia repair - Review of Systems Wound/Incisions: positive: Healing well General: positive: No symptoms, Fever HEENT: positive: No symptoms Pulmonary: positive: No symptoms Cardiovascular: positive: No symptoms Gastrointestinal: positive: No symptoms Genitourinary: positive: No symptoms Musculoskeletal: positive: No symptoms Psychiatric: positive: No symptoms All Other Systems: positive: Reviewed and negative Objective - Patient Data Reviewed Vital Signs: Yes Vital Signs: Vital Signs x48h Temp Pulse Resp BP Pulse Ox 03/20/20 15:58 36.7 C 85 18 121/69 96 03/20/20 11:40 36.8 C 83 18 102/54 L 100 Weight: Weight 03/18/20 03/19/20 03/20/20 23:59 23:59 23:59 Weight (kg) 155 kg Intake & Output: Intake and Output Totals x24h 03/18/20 03/19/20 03/20/20 23:59 23:59 23:59 Intake Total 1010 3448.334 Output Total 1575 1300 Balance -565 2148.334 - Lab Results Other Lab Results: Lab Results x24hrs 03/20/20 Range/Units 07:41 POC Whole Bld Glucose 146 H (70 - 100) mg/dL - Current Medications Current Medications: Current Medications Generic Name Dose Route Start Last Admin Trade Name Freq PRN Reason Stop Dose Admin Enoxaparin Sodium 40 mg 03/20/20 09:00 03/20/20 10:11 Enoxaparin 40 Mg/0.4 Ml Syringe SUBQ 40 mg DAILY KORIN Administration Potassium Chloride/Dextrose/Sod Cl 1,000 mls @ 100 mls/hr 03/19/20 14:00 03/20/20 12:00 D5.45ns W/20 Meq Kcl IV 100 mls/hr .Q10H KORIN Infusion Ketorolac Tromethamine 30 mg 03/19/20 13:09 03/20/20 15:07 Ketorolac 30 Mg/Ml Vial IVP 03/24/20 13:08 30 mg Q6H PRN Administration PAIN Pantoprazole Sodium 40 mg 03/19/20 14:00 03/20/20 06:42 Pantoprazole 40 Mg Tablet PO 40 mg QDAC KORIN Administration Polyethylene Glycol 17 gm 12/01/20 09:00 03/20/20 10:12 Polyethylene Glycol 3350 17 Gm Packet PO 17 gm DAILY KORIN Administration Sodium Chloride 10 ml 03/19/20 17:00 03/20/20 10:12 Sodium Chloride Flush 0.9% 10 Ml Syringe IVP Not Given 0100,0900,1700 KORIN Sodium Chloride 10 ml 03/19/20 13:09 03/20/20 15:07 Sodium Chloride Flush 0.9% 10 Ml Syringe IVP 10 ml PRN PRN Administration NEEDED PER PROVIDER ORDERS - Physical Exam Wound/Incisions: positive: Healing well General Appearance: positive: No acute distress, Alert Eyes Bilateral: positive: Normal inspection, PERRL ENT: positive: ENT inspection nml Neck: positive: Nml inspection Respiratory: positive: Chest non-tender, No respiratory distress Cardiovascular: positive: Regular rate & rhythm Abdomen: positive: Other (Appropriately tender to palp) ABX Reporting Has patient been on IV antibiotics over the past 48 hours?: Yes Impression/Plan - Problem List Problem List: Improving after Lap Ventral Hernia Repair. Feeling much better but still with no bowel function. Eating well and no nausea. Requiring pain meds only when ambulating Will hep lock IV and encourage ambulation. Try to stick to po meds today. Plan for discharge in the AM if she continues to do well.
[2020-03-20] MEDS: ACETAMINOPHEN 500 MG TABLET PO SCH ×2 (17:17→23:42)
[2020-03-20] MEDS ORDERED: MAGNESIUM HYDROXIDE 2,400 MG/30 ML UDC PO ONE (20:36)
[2020-03-21] MEDS: PANTOPRAZOLE 40 MG TABLET PO SCH (06:33)
[2020-03-21] MEDS: ACETAMINOPHEN 500 MG TABLET PO SCH ×2 (06:33→11:52)
[2020-03-21] MEDS: polyethylene glycoL 3350 17 GM PACKET PO SCH (08:43)
[2020-03-21] MEDS: ENOXAPARIN 40 MG/0.4 ML SYRINGE SUBQ SCH (08:43)
[2020-03-21] MEDS: SODIUM CHLORIDE FLUSH 0.9% 10 ML SYRINGE IVP SCH (08:44)
--- NOTE | 2020-03-21 09:39 | Discharge Plan ---
Discharge Plan Problem Reviewed?: Yes Disposition: Home, Self Care Condition: Stable Prescriptions: oxyCODONE [Roxicodone] 5 mg PO Q4HR PRN #20 tablet PRN Reason: Pain polyethylene glycoL 3350 [Miralax] 17 gm PO BID #60 packet Diet: Regular Activity Restrictions: 10 pound lifting limit Shower Restrictions: No Driving Restrictions: Yes (not while using narcotics) Weight Bearing: Full Weight No Smoking: If you smoke, Please STOP! Call for help. Follow-up with: Gordy Hu MD [Primary Care Provider] - Nury Cobb MD [Provider Admit Priv/Credential] -
--- NOTE | 2020-03-21 09:45 | DISCHARGE SUMMARY ---
"Discharge Summary Admit Date: 03/19/20 Discharge Date: 03/21/20 Discharging Provider: Reza Primary Care Provider: Mayte Code Status: Attempt Resuscitation Condition at Discharge: Stable Discharge Disposition: 01 Home, Self Care - DIAGNOSES Admission Diagnoses: Incarcerated ventral hernia Discharge Diagnoses with Status of Each Condition: Resolved - HPI History of Present Illness: 54 year old lady with a painful incarcerated hernia. Presented for laparoscopic repair on the date of admission - CONSULTS | PROCEDURES Consultations: None Procedures: Lap ventral hernia repair with extensive lysis of adhesions - HOSPITAL COURSE Hospital Course: The patient was admitted to the med/surg unit postoperatively for convalesence, pain control and supportive care. Pain control has improved over the period of admission and is now well controlled with oral medications. Bowel function has returned and she is eating without nausea or distress. She is ready for discharge to home in the care of her family. She will observe a 10 pound lifting restriction and follow up with me in my office in 2 weeks. - ALLERGIES Allergies/Adverse Reactions: Allergies Allergy/AdvReac Type Severity Reaction Status Date / Time latex Allergy Rash Verified 09/27/19 08:03 - MEDICATIONS Home Medications: Ambulatory Orders Medication Instructions Recorded Confirmed Ascorbic Acid [Vitamin C] 1,000 mg PO DAILY 03/08/20 03/19/20 Ascorbic Acid/Elderberry Fruit 1,250 mg PO DAILY 03/08/20 03/19/20 [Elderberry-Vit C 50-100 mg w] Cholecalciferol [Vitamin D3] 50 mcg PO DAILY 03/08/20 03/19/20 Lidocaine Patch 5% [Lidoderm Patch] 1 each TOP DAILY 03/08/20 03/19/20 Multivitamin 1 each PO DAILY 03/08/20 03/19/20 Acetaminophen [Tylenol] 1,000 mg PO Q6H tablet 03/21/20 oxyCODONE [Roxicodone] 5 mg PO Q4HR PRN #20 tablet 03/21/20 polyethylene glycoL 3350 [Miralax] 17 gm PO BID #60 packet 03/21/20 - PHYSICAL EXAM AT DISCHARGE General Appearance: positive: No acute distress, Alert Eyes Bilateral: positive: Normal inspection, PERRL, EOMI ENT: positive: ENT inspection nml, Pharynx nml, No signs of dehydration Neck: positive: Nml inspection, No JVD Respiratory: positive: Chest non-tender, No respiratory distress, Breath sounds nml Cardiovascular: positive: Regular rate & rhythm Abdomen: positive: Other (soft and appropriately tender with active bowel sounds. Wounds are all clean and dry) Skin: positive: Color nml - QUALITY (Female Hip Fx Only) Was patient sent home on osteoporosis medication?: No - FOLLOW UP Follow Up: [address] Cobb - TIME SPENT Time Spent in Discharge (Minutes): 20"
[2020-03-21 09:51] VITALS: BP 124/68
[2020-03-21] MEDS ORDERED: LACTULOSE 10 GM /15 ML UDC PO SCH (10:00)
== END 2020-03-21 15:35 | disposition home or self-care (01) | DRG 354 ==
LOC: SDS 07:23 → MS2 13:09
PROVIDERS: ADMIT Surgery; ATTEND Surgery
PROC: 0WUF4JZ Supplement Abdominal Wall with Synthetic Substitute, Percutaneous Endoscopic Approach (ICD-10-PCS; principal; 2020-03-19 08:45)
DX: K43.6 Other and unspecified ventral hernia with obstruction, without gangrene (principal); Z68.43 Body mass index [BMI] 50.0-59.9, adult; E66.01 Morbid (severe) obesity due to excess calories; J45.909 Unspecified asthma, uncomplicated; Z79.51 Long term (current) use of inhaled steroids
CPT/HCPCS: 49653; 81025; 94660; A9270; J0131; J0330; J0690; J1170; J1650; J3490; J7120; 85049

== ENCOUNTER 2020-06-23 16:43 | Outpatient (CLI) | payer OTHER ==
[2020-06-23 21:25] LABS: BACTERIAL VAGINOSIS DNA NEGATIVE (NEGATIVE); CANDIDA GLABRATA DNA NEGATIVE (NEGATIVE); CANDIDA GROUP DNA NEGATIVE (NEGATIVE); CANDIDA KRUSEI DNA NEGATIVE (NEGATIVE); TRICHOMONAS VAGINALIS DNA POSITIVE (NEGATIVE)
[2020-06-23 22:16] LABS: CHLAMYDIA TRACHOMATIS DNA NEGATIVE (NEGATIVE); NEISSERIA GONORRHOEAE DNA NEGATIVE (NEGATIVE)
[2020-06-23 22:20] LABS: TRICHOMONAS VAGINALIS DNA POSITIVE (NEGATIVE)
== END 2020-06-23 23:59 | disposition home or self-care (01) ==
LOC: LAB.S 16:43
PROVIDERS: ATTEND Physician Assistant
DX: N89.8 Other specified noninflammatory disorders of vagina (principal); R30.0 Dysuria
CPT/HCPCS: 87077; 87086; 87491; 87591; 87661; 87801

== ENCOUNTER 2020-07-14 18:19 | Emergency (ER) | payer OTHER ==
[2020-07-14] MEDS ORDERED: BUFFERED LIDOCAINE 10 ML SYRINGE SUBQ STA (18:48)
[2020-07-14] MEDS ORDERED: TETANUS/DIPHTHERIA/PERTUSSIS 0.5 ML SYRINGE IM ONE (18:48)
--- NOTE | 2020-07-14 18:56 | ED Physician Documentation ---
History of Present Illness - Stated complaint Stated Complaint: FALL,RT SIDE PX - Chief complaint Chief Complaint: Ext Problem - Additonal information Additional information: 54-year-old female presents emergency department for evaluation of a large right lower leg wound sustained when she fell backwards cutting her calf on Cinder block with sticking out of it. She was removing blackberries from her yard and lost balance. Unknown last tetanus. No LOC. not anticoagulated Review of Systems Constitutional: denies: Fever Eyes: reports: Reviewed and negative Ears: reports: Reviewed and negative Nose: reports: Reviewed and negative Throat: reports: Reviewed and negative Cardiac: reports: Reviewed and negative Respiratory: reports: Reviewed and negative GI: reports: Reviewed and negative : reports: Reviewed and negative Skin: reports: Laceration (s) (right lower leg) Musculoskeletal: reports: Reviewed and negative PD PAST MEDICAL HISTORY - Past Medical History Cardiovascular: None Respiratory: Asthma, Sleep apnea Neuro: Migraines Endocrine/Autoimmune: None GI: None 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 ADMINISTRATOR: None : None HEENT: Chronic vision loss Psych: None Musculoskeletal: Osteoarthritis Derm: Rosacea - Past Surgical History Past Surgical History: Yes General: Colonoscopy /WAREHOUSE ADMINISTRATOR: section, Other Derm:  - Present Medications Home Medications: Ambulatory Orders Medication Instructions Recorded Confirmed Ascorbic Acid [Vitamin C] 1,000 mg PO DAILY 03/08/20 03/19/20 Ascorbic Acid/Elderberry Fruit 1,250 mg PO DAILY 03/08/20 03/19/20 [Elderberry-Vit C 50-100 mg Chw] Cholecalciferol [Vitamin D3] 50 mcg PO DAILY 03/08/20 03/19/20 Lidocaine Patch 5% [Lidoderm Patch] 1 each TOP DAILY 03/08/20 03/19/20 Multivitamin 1 each PO DAILY 03/08/20 03/19/20 Acetaminophen [Tylenol] 1,000 mg PO Q6H tablet 03/21/20 oxyCODONE [Roxicodone] 5 mg PO Q4HR PRN #20 tablet 03/21/20 polyethylene glycoL 3350 [Miralax] 17 gm PO BID #60 packet 03/21/20 cephALEXin [Keflex] 500 mg PO Q6H #20 07/14/20 - Allergies Allergies/Adverse Reactions: Allergies Allergy/AdvReac Type Severity Reaction Status Date / Time latex Allergy Rash Verified 07/14/20 18:30 - Social History Does the pt smoke?: No Smoking Status: Never smoker Does the pt drink ETOH?: Yes Does the pt have substance abuse?: No - Immunizations Immunizations are current?: No Immunizations: TDAP >10years/unknown - POLST Patient has POLST: No PD ED PE EXPANDED - General General: Alert, No acute distress, Other (obese) - Cardiac Cardiac: Radial strong equal, Pedal strong equal, Cap refill < 2 sec - Respiratory Respiratory: Clear to ausultation calli. No: Distress, Labored - Abdomen Abdomen: Normal Bowel sounds. No: Tender to palpation - Extremities Extremities: Right leg (8 cm irregular gash/laceration right lower lateral calf with moderate amount of ecchymosis surrounding as well as loss of subcutaneous fatty tissue.) Results - Vitals Vitals: Vital Signs - 24 hr 07/14/20 18:30 Temperature 36.5 C Heart Rate 80 Respiratory 16 Rate Blood Pressure 200/100 H O2 Saturation 98 Oxygen O2 Source Room air Procedures - Laceration (location) right lower leg Length in cm: 8 Wound type: Irregular, Into subcut fat, Heavily Contaminated Neurovascular status: Sensory intact, Motor intact Anesthesia: Lidocaine 1% Wound preparation: Chlorhexadine, Irrigated copiously NS, Debrided moderately, Wound explored Skin layer closure: [place] Other: Patient tolerated well, No complications, Dressing applied, Tetanus booster given PD MEDICAL DECISION MAKING - ED course Complexity details: re-evaluated patient, d/w patient ED course: 54-year-old female presents emergency department with a large gash/gaping wound on her right lateral leg sustained when she tripped backwards cutting herself on a cinder block with a piece of metal sticking out of it. Wound was fairly contaminated and required moderate debridement. Skin closure was a obtained using sim. Given the amount of contamination will place patient on a 5-day course of prophylactic Keflex. Tetanus was updated today here in the emergency department. Emergent return precautions for concerns of infection and routine wound care were discussed. Departure - Departure Disposition: 01 Home, Self Care Clinical Impression: Leg laceration Qualifiers: Encounter type: initial encounter Laterality: right Qualified Code(s): S81.811A - Laceration without foreign body, right lower leg, initial encounter Condition: Stable Record reviewed to determine appropriate education?: Yes Instructions: ED Laceration All Prescriptions: cephALEXin [Keflex] 500 mg PO Q6H #20 Comments: Thao your laceration was closed with 6 sim. The wound was fairly contaminated but was washed and cleansed and irrigated thoroughly here in the ED. Therefore I would like you to fill the prescription for the prophylactic antibiotics and begin taking tomorrow as directed. Your first dose was given here in the emergency department. Your sim should be removed in 7 to 10 days. In 24 hours you may remove the dressing wash gently with warm soap and water, apply any antibiotic ointment and a simple bandage. Your tetanus is up-to-date. Please attempt to keep your wound clean and dry. Do not submerge it in dirty bath water. Return to the emergency department if you have any concerns of infection such as redness, fevers milky drainage increased pain.
[2020-07-14] MEDS ORDERED: cephALEXin 250 MG CAPSULE PO STA (19:45)
[2020-07-14] MEDS ORDERED: BACITRACIN ZINC OINT 1 PACKET TOP STA (19:45)
[2020-07-14 20:01] VITALS: BP 149/91
--- OUTSIDE RECORDS SUMMARY | 2020-07-24 20:30 | EXTERNAL MEDICAL SUMMARY RPT | Continuity of Care Document ---
:1965 Demographics Phone Unavailable Preferred Language Unknown Marital Status Unknown Gnosticist Affiliation Unknown Race Unknown Ethnic Group Unknown Author Organization [facility] Address [address] [id number] Phone Social History date description facility [phone]
== END 2020-07-14 20:10 | disposition home or self-care (01) ==
LOC: ED 18:19
DX: S81.821A Laceration with foreign body, right lower leg, initial encounter (principal); W01.198A Fall on same level from slipping, tripping and stumbling with subsequent striking against other object, initial encounter; Y93.H2 Activity, gardening and landscaping; Y92.007 Garden or yard of unspecified non-institutional (private) residence as the place of occurrence of the external cause; Z23 Encounter for immunization
CPT/HCPCS: 12034; 90471; 90715; 99283; A9270; 12004

== ENCOUNTER 2020-09-25 08:00 | Outpatient (CLI) | payer OTHER ==
--- NOTE | 2020-09-25 19:05 | XRAY Report ---
PROCEDURE: Hand 3 View LT INDICATIONS: PAIN IN LEFT HAND TECHNIQUE: 3 views of the hand(s) acquired. COMPARISON: None FINDINGS: Bones: No fractures or dislocations. No suspicious bony lesions. Soft tissues: No suspicious soft tissue calcifications. IMPRESSION: No evidence acute bony abnormality of the left hand. Reviewed by: Otilio Fragoso MD on 09/25/2020 7:03 PM PDT Approved by: Otilio Fragoso MD on 09/25/2020 7:03 PM PDT Station ID: [id number]
--- NOTE | 2020-09-25 19:07 | XRAY Report ---
PROCEDURE: Ankle 3 View RT INDICATIONS: SPRAIN OF RIGHT ANKLE TECHNIQUE: 3 views of the ankle were acquired. COMPARISON: None FINDINGS: Bones: No fractures or dislocations. Ankle mortise is normally aligned. No suspicious bony lesions . Plantar calcaneal spur. Soft tissues: No tibiotalar joint effusion. Achilles tendon appears normal. Diffuse ankle edema. IMPRESSION: No evidence acute bony abnormality of the right ankle. Reviewed by: Otilio Fragoso MD on 09/25/2020 7:05 PM PDT Approved by: Otilio Fragoso MD on 09/25/2020 7:05 PM PDT Station ID: [id number]
== END 2020-09-25 23:59 | disposition home or self-care (01) ==
LOC: DI.S 08:00
PROVIDERS: ATTEND Emergency Medicine
DX: M79.642 Pain in left hand (principal); S93.491A Sprain of other ligament of right ankle, initial encounter

== ENCOUNTER 2020-10-02 13:00 | Outpatient (CLI) | payer OTHER ==
[2020-10-02 19:49] LABS: BASOPHILS % (AUTO) 0.3 %; EOSINOPHILS # (AUTO) 0.1 10^3/uL (0.0-0.7); EOSINOPHILS % (AUTO) 1.4 %; HCT - HEMATOCRIT 41.2 % (37.0-47.0); HGB - HEMOGLOBIN 13.9 g/dL (12.0-16.0); LYMPHOCYTES # (AUTO) 1.9 10^3/uL (1.5-3.5); LYMPHOCYTES % (AUTO) 28.3 %; MEAN CORPUSCULAR HEMOGLOBIN 31.2 pg (27.0-31.0); MEAN CORPUSCULAR HGB CONC 33.7 g/dL (32.0-36.0); MEAN CORPUSCULAR VOLUME 92.4 fL (81.0-99.0); MEAN PLATELET VOLUME 9.3 fL (7.9-10.8); MONOCYTES # (AUTO) 0.4 10^3/uL (0.0-1.0); MONOCYTES % (AUTO) 6.2 %; NEUTROPHILS # (AUTO) 4.2 10^3/uL (1.5-6.6); NEUTROPHILS % (AUTO) 63.5 %; PLT - PLATELET COUNT 419 10^3/uL (130-450); RED BLOOD COUNT 4.46 10^6/uL (4.20-5.40); RED CELL DISTRIBUTION WIDTH 13.4 % (12.0-15.0); WHITE BLOOD COUNT 6.6 x10^3/uL (4.8-10.8)
[2020-10-02 20:03] LABS: ALBUMIN/GLOBULIN RATIO 1.2 (1.0-2.2); ALKALINE PHOSPHATASE 73 IU/L (42-121); ALT ALANINE AMINOTRANSFERASE 12 IU/L (10-60); AST ASPARTATE AMINOTRANSFERASE 14 IU/L (10-42); BILIRUBIN,TOTAL 0.9 mg/dL (0.2-1.0); BUN - BLOOD UREA NITROGEN 11 mg/dL (6-20); CARBON DIOXIDE - CO2 28 mmol/L (21-32); CHLORIDE 102 mmol/L (101-111); CHOL/HDL RATIO 3.6 (<4.4); CHOLESTEROL 197 mg/dL; CREATININE 0.6 mg/dL (0.4-1.0); GFR - MDRD 105 (>89); GLUCOSE 102 mg/dL (70-100); HDL CHOLESTEROL 54 mg/dL; LDL CHOLESTEROL,CALCULATED 111 mg/dL; LDL/HDL RATIO 2.1 (<4.4); POTASSIUM 3.8 mmol/L (3.5-5.0); SODIUM 139 mmol/L (135-145); TOTAL PROTEIN 7.3 g/dL (6.7-8.2); TRIGLYCERIDES 162 mg/dL; VLDL CHOLESTEROL 32 mg/dL
[2020-10-02 20:39] LABS: ESTIMATED AVERAGE GLUCOSE 111 mg/dL (70-100); HEMOGLOBIN A1c% 5.5 % (4.27-6.07)
== END 2020-10-02 13:01 | disposition home or self-care (01) ==
LOC: LAB.S 13:00
PROVIDERS: ATTEND Physician Assistant
DX: R10.30 Lower abdominal pain, unspecified (principal); I10 Essential (primary) hypertension; E66.01 Morbid (severe) obesity due to excess calories; R73.01 Impaired fasting glucose
CPT/HCPCS: 36415; 80053; 80061; 83036; 83721; 85025

== ENCOUNTER 2020-11-05 08:00 | Outpatient (CLI) | payer OTHER ==
--- NOTE | 2020-11-05 15:54 | XRAY Report ---
PROCEDURE: Knee 3 View LT INDICATIONS: CONTUSION TO LEFT KNEE TECHNIQUE: 3 views of the left knee(s) were acquired. COMPARISON: None. FINDINGS: Bones: No fractures or dislocations. No suspicious bony lesions. Mild tricompartmental osteoarthri tis is noted most prominent in medial femoral tibial compartment. Soft tissues: Small to moderate suprapatellar joint effusion is seen.. No suspicious soft tissue nuria cifications. IMPRESSION: Mild tricompartment osteoarthritis more prominent in medial femoral tibial compartment. Small to moderate amount of joint effusion. No fracture or dislocation. Reviewed by: Bao Mancilla MD on 11/05/2020 3:53 PM PDT Approved by: Bao Mancilla MD on 11/05/2020 3:53 PM PDT Station ID: [id number]
--- NOTE | 2020-11-05 16:07 | XRAY Report ---
PROCEDURE: Tib/Fib LT INDICATIONS: CONTUSION OF LEFT LOWER LEG TECHNIQUE: 3 views of the tibia and fibula were acquired. COMPARISON: None FINDINGS: Bones: No fractures or dislocations. No suspicious bony lesions. Soft tissues: No suspicious soft tissue calcifications or masses. IMPRESSION: No acute lower leg fracture or dislocation. No suspicious bony lesion or gross soft tissue abnormalit y. Reviewed by: Bao Mancilla MD on 11/05/2020 4:06 PM PDT Approved by: Bao Mancilla MD on 11/05/2020 4:06 PM PDT Station ID: [id number]
== END 2020-11-05 23:59 | disposition home or self-care (01) ==
LOC: DI.S 08:00
PROVIDERS: ATTEND Physician Assistant Medical
DX: S80.12XA Contusion of left lower leg, initial encounter (principal); S80.02XA Contusion of left knee, initial encounter; M17.12 Unilateral primary osteoarthritis, left knee; M25.462 Effusion, left knee

== ENCOUNTER 2022-05-26 15:49 | Outpatient (CLI) | payer OTHER ==
--- NOTE | 2022-05-26 16:11 | XRAY Report ---
PROCEDURE: Shoulder 3 View RT INDICATIONS: RIGHT SHOULDER CALCIFIC TENDINITIS TECHNIQUE: 3 views of the shoulder were acquired. COMPARISON: X-ray shoulder 08/25/2018 FINDINGS: Bones: No fractures or dislocations. No suspicious bony lesions. Visualized ribs appear intact. Mi ld acromioclavicular degenerative narrowing. Soft tissues: Calcific tendinitis is noted as well appreciated on current exam. IMPRESSION: Less prominent appearance of calcific tendinitis compared to prior exam possibly secondary to positio anthony. Reviewed by: Elaine Regan MD on 05/26/2022 4:10 PM PST Approved by: Elaine Regan MD on 05/26/2022 4:10 PM PST Station ID: [id number]
== END 2022-05-26 15:50 | disposition home or self-care (01) ==
LOC: DI.S 15:49
PROVIDERS: ATTEND Physician Assistant
DX: M75.31 Calcific tendinitis of right shoulder (principal)

== ENCOUNTER 2022-10-06 08:00 | Outpatient (CLI) | payer OTHER ==
--- NOTE | 2022-10-06 14:41 | XRAY Report ---
PROCEDURE: Shoulder 3 View LT INDICATIONS: LEFT SHOULDER PAIN TECHNIQUE: 3 views of the shoulder were acquired. COMPARISON: None. FINDINGS: Bones: No fractures or dislocations. No suspicious bony lesions. Visualized ribs appear intact. Ca lcification projecting over the humeral head. Soft tissues: No suspicious soft tissue calcifications. IMPRESSION: Dystrophic calcification projecting over the humeral head, either intramuscular or intra-articular. Reviewed by: Chris Herman on 10/06/2022 2:39 PM PDT Approved by: Chris Herman on 10/06/2022 2:39 PM PDT Station ID: [id number]
== END 2022-10-06 23:59 | disposition home or self-care (01) ==
LOC: DI.S 08:00
PROVIDERS: ATTEND Physician Assistant
DX: M25.812 Other specified joint disorders, left shoulder (principal)

== ENCOUNTER 2023-07-13 08:58 | Outpatient (CLI) | payer MEDICAID, OTHER ==
--- NOTE | 2023-07-14 10:10 | Mammography Report ---
BILATERAL DIGITAL SCREENING MAMMOGRAM 3D/2D: 07/13/2023 CLINICAL: Routine screening. Family history of breast cancer. Comparison is made to exams dated: 08/04/2017 mammogram - [facility] and 12/30/2013 mammogram - Outside facility. There are scattered areas of fibroglandular density in both breasts (category b / 25%-50% glandular t issue). No significant masses, calcifications, or other findings are seen in either breast. There has been no significant interval change. IMPRESSION: NEGATIVE There is no mammographic evidence of malignancy. A 1 year screening mammogram is recommended. Based on the Tyrer Cuzick model (a risk assessment model) the patient's lifetime risk is 8.1% and her 10 year risk is 2.6%. According to the ACR, ACS, and NCCN guidelines, an annual breast MRI exam zeferino g with mammogram is recommended if the patient's lifetime risk is 20% or greater. This exam was interpreted at Station ID: [id number]. NOTE: For mammograms, a report in lay terms will be sent to the patient. Approximately 15% of breast malignancies will not be visualized mammographically. In the management of a palpable breast mass, a negative mammogram must not discourage biopsy of a clinically suspicious lesion. Electronically Signed By: Corey [email or web address]/[email or web address]:07/13/2023 11:29:22 letter sent: No_Letter ACR BI-RADS Category 1: Negative [id number] PARENCHYMAL PATTERN: (A) - The breast(s) demonstrate(s) scattered fibroglandular densities. BI-RADS CATEGORY: (1) - 1 RECOMMENDATION: (ANNUAL) - Recommend routine annual screening mammography. [id number] 1 year screening LATERALITY: (B)
== END 2023-07-13 08:59 | disposition home or self-care (01) ==
LOC: DI.S 08:58
PROVIDERS: ATTEND Physician Assistant Medical
DX: Z12.31 Encounter for screening mammogram for malignant neoplasm of breast (principal); Z80.3 Family history of malignant neoplasm of breast; R92.323 Mammographic fibroglandular density, bilateral breasts